=== PATIENT | female | born 1950 | race Caucasian/White ===

== ENCOUNTER → 2017-08-09 | Outpatient (CLI) | payer MEDICARE | END | disposition home or self-care (01) | LOC: CFH 08:36 | PROVIDERS: ATTEND Nurse Practitioner Family | DX: Z12.31 Encounter for screening mammogram for malignant neoplasm of breast (principal) | CPT/HCPCS: G0202 ==

== ENCOUNTER 2017-09-21 05:33 | Day surgery (SDC) | payer MEDICARE ==
[~2017-09-21] VITALS: Ht 165.1 cm; Wt 62.0 kg
[~2017-09-21 05:33] MED LIST: ALEN70TA5 PO; AMLO5TAB2 PO; ATOR20TA9 PO; BENA40TA2 PO; CHOL10003 PO; ESTR0.5T PO; LEVO75TA5 PO; OMEG1CAP23 PO; [UNRECOGNIZED DRUG - OTHER] PO
[2017-09-21] MEDS ORDERED: LACTATED RINGERS 1,000 ML IV SCH (06:07)
[2017-09-21] MEDS ORDERED: LIDOCAINE/PF 1%, 30ML ONE (06:30)
[2017-09-21] MEDS ORDERED: NEOMY/POLYMYXIN B GU IRR. 1 ML IRRIG ONE (06:31)
[2017-09-21] MEDS ORDERED: ESTROGENS CONJUGATED VAG CRM 0.625MG/1G, 30GM ONE (06:31)
[2017-09-21] MEDS ORDERED: FLUORESCEIN SODIUM 500 MG/5 ML ONE (06:32)
[2017-09-21] MEDS ORDERED: THROMBIN 5,000 UNIT VIAL TP ONE (06:32)
[2017-09-21] MEDS ORDERED: EPINEPHRINE 1 MG/ML, 1ML ONE (06:33)
[2017-09-21] MEDS ORDERED: MIDAZOLAM 1 MG/ML, 2ML ONE ×2 (07:07)
[2017-09-21] MEDS ORDERED: FENTANYL PF 100 MCG/2ML ONE ×2 (07:07)
[2017-09-21] MEDS ORDERED: ROCURONIUM 10 MG/ML ONE (07:28)
[2017-09-21] MEDS ORDERED: PHENYLEPHRINE 10 MG/ML ONE (07:28)
[2017-09-21] MEDS ORDERED: PROPOFOL 10 MG/ML, 20ML ONE (07:28)
[2017-09-21] MEDS ORDERED: DEXAMETHASONE 4 MG/ML, 1ML ONE (07:28)
[2017-09-21] MEDS ORDERED: CEFOTETAN 2 GM ONE (07:28)
[2017-09-21] MEDS ORDERED: KETAMINE 10 MG/ML, 20ML ONE (08:04)
[2017-09-21] MEDS ORDERED: KETOROLAC 30 MG/1 ML ONE (08:29)
[2017-09-21] MEDS ORDERED: ONDANSETRON 2MG/ML, 2ML ONE ×2 (08:29)
[2017-09-21] MEDS ORDERED: GLYCOPYRROLATE 0.2MG/1ML, 5ML ONE (08:37)
[2017-09-21] MEDS ORDERED: NEOSTIGMINE 1 MG/ML, 10ML ONE (08:37)
[2017-09-21] MEDS ORDERED: HYDROmorphone 1 MG/ML, 1ML ONE (08:44)
[2017-09-21] MEDS ORDERED: MEPERIDINE/PF 25MG/0.5ML IVPush PRN (09:00)
[2017-09-21] MEDS ORDERED: PROMETHAZINE 25 MG/ML, 1ML IV PRN (09:00)
[2017-09-21] MEDS ORDERED: hydrALAzine 20 MG/ML, 1ML IV PRN (09:00)
[2017-09-21] MEDS ORDERED: ACETAMINOPHEN 325 MG TABLET PO PRN (09:00)
[2017-09-21] MEDS ORDERED: OXYcodone 5 MG/5 ML ORAL.SOL UDC PO PRN (09:00)
[2017-09-21] MEDS ORDERED: FENTANYL PF 100 MCG/2ML IV PRN (09:00)
[2017-09-21] MEDS ORDERED: LABETALOL 5MG/ML, 20ML IV PRN (09:00)
[2017-09-21] MEDS ORDERED: HYDROmorphone 1 MG/ML, 1ML IV PRN (09:00)
[2017-09-21] MEDS ORDERED: ONDANSETRON 2MG/ML, 2ML IVPush PRN (09:00)
== END 2017-09-21 14:30 ==
LOC: OUT 05:33
PROVIDERS: ATTEND Obstetrics & Gynecology Gynecology
DX: N81.6 Rectocele (principal); K46.9 Unspecified abdominal hernia without obstruction or gangrene; N81.10 Cystocele, unspecified; I10 Essential (primary) hypertension; Z90.710 Acquired absence of both cervix and uterus; Z98.890 Other specified postprocedural states
CPT/HCPCS: 57265; 57282; J0171; J1100; J1170; J1885; J2250; J2370; J2405; J2704; J2710; J3010; J3490; J7120; Q4119; S0074